=== PATIENT | male | born 1960 | race Caucasian/White ===

== ENCOUNTER 2019-05-13 12:52 | Outpatient (CLI) | payer OTHER, SELFPAY ==
--- NOTE | 2019-05-13 12:15 | DI.RAD_ITS ---
SYMPTOMS/DIAGNOSIS: RT LATERAL KNEE PAIN, M25.561, S/P FALL 3 WKS AGO RIGHT KNEE: Two views. There is mild periarticular spurring in the femoral tibial joint and the patellofemoral joint. The joint spaces are otherwise well maintained. The bones are normally mineralized and appear intact. The soft tissues are unremarkable. IMPRESSION: Mild degenerative changes of the right knee.
--- NOTE | 2019-05-13 12:15 | DI.US_ITS ---
SYMPTOMS/DIAGNOSIS: RT CALF PAIN, SWELLING, M79.661, RT 3 CM LARGER THAN LT RIGHT LOWER EXTREMITY ULTRASOUND: The deep veins of the right lower extremity show normal compression, augmentation and color flow. There is no evidence of a deep venous thrombus present. There is a 2.6 x 1.6 x 1.9 cm anechoic fluid collection in the popliteal fossa. This may represent a popliteal cyst. Resolving hematoma or seroma can not be entirely excluded. IMPRESSION: 1. No evidence of a right lower extremity deep venous thrombus. 2. 2.6 x 1.6 x 1.9 cm anechoic fluid collection in the popliteal fossa. The findings are suggestive of a popliteal cyst. Resolving hematoma or seroma can not be entirely excluded.
== END 2019-05-13 13:12 ==
PROVIDERS: PCP Nurse Practitioner Family; Visit Provider Nurse Practitioner Family
DX: M25.561 Pain in right knee (principal); M79.661 Pain in right lower leg; R22.41 Localized swelling, mass and lump, right lower limb; M71.21 Synovial cyst of popliteal space [Baker], right knee; M17.11 Unilateral primary osteoarthritis, right knee
CPT/HCPCS: 73560; 93971